=== PATIENT | female | born 1955 | race Caucasian/White ===

== ENCOUNTER → 2017-09-28 | Outpatient (CLI) | payer OTHER | LOC: FIMAGING 15:40 | PROVIDERS: ATTEND Family Medicine | DX: Z12.31 Encounter for screening mammogram for malignant neoplasm of breast (principal) | CPT/HCPCS: G0202 ==

== ENCOUNTER → 2017-11-17 | Outpatient (CLI) | payer OTHER | LOC: BMCIMAGING 14:44 | PROVIDERS: ATTEND Nurse Practitioner Family | DX: M85.80 Other specified disorders of bone density and structure, unspecified site (principal); Z82.62 Family history of osteoporosis ==

== ENCOUNTER 2018-02-03 08:36 | Emergency (ER) | payer OTHER ==
--- NOTE | 2018-02-03 08:52 | CPEKG ---
Heart Rate: 70 RR Interval: 857 P-R Interval: 140 QRSD Interval: 90 QT Interval: 384 QTC Interval: 415 P Carmichael: 49 QRS Carmichael: 8 T Wave Carmichael: 48 EKG Severity - NORMAL ECG - EKG Impression: SINUS RHYTHM Electronically Signed By: Se Vasquez 05-Feb-2018 12:50:00
[2018-02-03] MEDS ORDERED: NS 1,000 ML IV ONE (09:10)
--- NOTE | 2018-02-03 09:10 | EDPHY ---
General Time Seen by Provider: 02/03/18 09:01 Narrative: CHIEF COMPLAINT: HISTORY OF PRESENT ILLNESS: Patient complains of 2 days history of palpitations, lightheadedness, indigestion. She describes palpitations as an "unpleasant thrill." This is relatively predictable with exertion over the past 2-3 days. She reports no chest pain but occasional mild pressure. No shortness of breath. No fever. No cough. No diaphoresis. No nausea or vomiting with this. Symptoms do resolve when she rest. She associates this with [id number] lightheadedness but no actual syncope. No spinning sensation. No recent travel , trauma, surgery or history of venous thrombolic event. No exogenous hormone use. She does report a recent viral illness that she still has mild symptoms from. She has previous echocardiogram greater than 10 years ago but no coronary artery diagnosis or stress test. No other associated complaints or modifying factors. REVIEW OF SYSTEMS: Ten systems reviewed and are negative unless otherwise noted in the HPI PCP: Dr. Harris SPECIALISTS: None PAST MEDICAL HISTORY: Denies. Echocardiogram performed greater than 10 years ago PAST SURGICAL HISTORY: No recent surgeries SOCIAL HISTORY: Moderate smoker quit 20+ years ago. Occasional alcohol. No drug use. Retired RN. FAMILY HISTORY: Noncontributory EXAMINATION General Appearance: Alert, no distress Head: normocephalic, atraumatic Eyes: Pupils equal and round, no conjunctival pallor or injection ENT, Mouth: Mucous membranes mildly dry. Airway widely patent. Neck: Normal inspection, supple, non-tender Respiratory: Lungs are clear to auscultation. No wheezing. No rhonchi. No crackles. Cardiovascular: Regular rate and rhythm. No murmur. Symmetric radial pulses 2 +. Symmetric DP pulses 2+. Gastrointestinal: Abdomen is soft and nontender Back: non-tender, no bony abnormalities Neurological: A&O, nonfocal, normal gait Skin: Warm and dry, no rash Extremities: Nontender, no pedal edema. No discrepancy of calf circumference. No erythema of the extremities. Negative DVT exam. Psychiatric: Mood and affect normal DIFFERENTIAL DIAGNOSES: Including but not limited to dehydration, ACS, PE, near-syncope, cardiac conduction delay, dysrhythmia, TIA MDM: 9:05 a.m. Palpitations, lightheadedness all related to exertion over the past few days. She has no direct pain but she does have some pressure. EKG reveals sinus rhythm with incomplete bundle branch and no acute ischemia. Vital signs are within normal limits. Lungs are clear. I have ordered laboratory studies, awake overnight monitor, chest x-ray and D-dimer. She is in no acute distress. 10:00 a.m. CBC, chemistry are both within normal limits. Troponin is negative. D-dimer is negative. BNP is within normal limits. Chest x-ray has been read as negative by radiologist. I have reviewed this as well. Discussed with Dr. Glasgow. We discussed echo cardiogram given the patient's exertional complaints. 10:05 a.m. I have re-evaluated the patient and discussed the negative findings. We discussed echocardiogram she agrees to proceed. She feels that this may be related to her recent upper respiratory infection but has consented to the echo. She is resting comfortably without complaints or any acute distress at this time. 10:50 a.m. Echocardiogram has been performed and is pending credit officer interpretation. 11:50 a.m. Unofficial interpretation is negative echocardiogram. I have re-evaluated the patient. She is asymptomatic at this time. I discussed with Dr. Glasgow and we are in agreement that she is stable for discharge home. We discussed avoiding exertional activities. We discussed follow up with primary care physician to discuss further workup. We also discussed ED precautions for any actual chest pain, shortness of breath, further near-syncope or syncopal episodes. I did offer admission to the hospital and she has declined. She would like to go home. I do feel this is reasonable and she is stable for discharge home. Addendum 2:00 p.m. Formal echocardiogram report is available and I reviewed this. No significant findings documented. EKG interpretation: Dr. Glasgow Sinus rhythm. No acute ischemia. SUPERVISION: Patient was independently examined, but I discussed the case with my secondary supervising physician Dr. Glasgow - Diagnostics Imaging Results: Imaging Impressions Chest X-Ray 02/03/18 09:11 Impression: Clear lungs. No acute process. - History Smoking Status: Never smoked - Objective Vital Signs: Initial Vital Signs Temperature (C) 97.3 F 02/03/18 08:39 Heart Rate 79 02/03/18 08:39 Respiratory Rate 20 02/03/18 08:39 Blood Pressure 134/88 H 02/03/18 08:39 O2 Sat (%) 99 02/03/18 08:39 O2 Delivery Mode Room Air Allergies/Adverse Reactions: No Known Allergies Allergy (Unverified 02/03/18 08:39) Home Medications: Medication Instructions Recorded NK [No Known Home Meds] 02/03/18 Laboratory Results: Laboratory Results 02/03/18 08:58 02/03/18 08:58 02/03/18 02/03/18 02/03/18 08:58 08:58 08:58 WBC 3.07 10^3/uL L 10^3/uL (3.80-9.50) RBC 4.56 10^6/uL 10^6/uL (4.18-5.33) Hgb 13.8 g/dL g/dL (12.6-16.3) Hct 41.1 % % (38.0-47.0) MCV 90.1 fL fL (81.5-99.8) MCH 30.3 pg pg (27.9-34.1) MCHC 33.6 g/dL g/dL (32.4-36.7) RDW 12.7 % % (11.5-15.2) Plt Count 262 10^3/uL 10^3/uL (150-400) MPV 9.0 fL fL (8.7-11.7) Neut % (Auto) 66.5 % % (39.3-74.2) Lymph % (Auto) 25.4 % % (15.0-45.0) [place] % (Auto) 7.2 % % (4.5-13.0) Eos % (Auto) 0.3 % L % (0.6-7.6) Baso % (Auto) 0.3 % % (0.3-1.7) Nucleat RBC Rel Count 0.0 % % (0.0-0.2) Absolute Neuts (auto) 2.04 10^3/uL 10^3/uL (1.70-6.50) Absolute Lymphs (auto) 0.78 10^3/uL L 10^3/uL (1.00-3.00) Absolute Monos (auto) 0.22 10^3/uL L 10^3/uL (0.30-0.80) Absolute Eos (auto) 0.01 10^3/uL L 10^3/uL (0.03-0.40) Absolute Basos (auto) 0.01 10^3/uL L 10^3/uL (0.02-0.10) Absolute Nucleated RBC 0.00 10^3/uL 10^3/uL (0-0.01) Immature Gran % 0.3 % % (0.0-1.1) Immature Gran # 0.01 10^3/uL 10^3/uL (0.00-0.10) PT 12.7 SEC SEC (12.0-15.0) INR 0.93 (0.83-1.16) APTT 27.5 SEC SEC (23.0-38.0) D-Dimer 0.28 ug/mLFEU ug/mLFEU (0.00-0.50) Sodium 142 mEq/L mEq/L (135-145) Potassium 4.5 mEq/L mEq/L (3.5-5.2) Chloride 103 mEq/L mEq/L (97-110) Carbon Dioxide 26 mEq/l mEq/l (22-31) Anion Gap 13 mEq/L mEq/L (8-16) BUN 19 mg/dL mg/dL (7-23) Creatinine 0.9 mg/dL mg/dL (0.6-1.0) Estimated GFR > 60 Glucose 91 mg/dL mg/dL (70-100) Calcium 9.8 mg/dL mg/dL (8.5-10.4) Troponin I < 0.012 ng/mL ng/mL (0.000-0.034) NT-Pro-B Natriuret Pep 86 pg/mL pg/mL (0-125) Medications Given: Discontinued Medications Sodium Chloride (Ns) 1,000 mls @ 0 mls/hr IV EDNOW ONE; Wide Open PRN Reason: Protocol Stop: 02/03/18 09:11 Last Admin: 02/03/18 09:25 Dose: 1,000 mls Departure - Departure Disposition: Home, Routine, Self-Care Clinical Impression: Light-headed feeling, Near syncope Condition: Good Instructions: Near Syncope (ED) Additional Instructions: 1. Contact primary care physician for further workup 2. Avoid exertional activity if symptomatic 3. Return to ER for worsening symptoms, syncope, chest pain, shortness of breath Referrals: ADEN HARRIS [Primary Care Provider] - As per Instructions
[2018-02-03 09:20] LABS: PLATELET COUNT 262 10^3/uL (150-400)
[2018-02-03 09:29] LABS: INR 0.93 (0.83-1.16); PROTIME(PATIENT) 12.7 SEC (12.0-15.0)
[2018-02-03 12:13] VITALS: BP 120/74
--- NOTE | 2018-02-03 12:26 | ECHO ---
[email or web address] [address] [address] Main: [phone] Fax: Transthoracic Echocardiogram Name: VANESA AG MR#: [id number] Study Date: 02/03/2018 Study Time: 10:31 AM Date of : 1955 Age: 62 year(s) Height: 165.1 cm (65 in.) Weight: 61.24 kg (135 lb.) BSA: 1.67 m2 Gender: Female Examination: Echo Indication: Lightheaded/near syncope with exertion Image Quality: Contrast: Requested by: Sonny Harrison BP: / Heart Rate: Rhythm: Indication: Lightheaded/near syncope with exertion Procedure Staff Trauma Registrar: Natalee Madison [facility] Reading Physician: Faizan Calvert MD Requesting Provider: Conclusions: Left Ventricle: Normal size left ventricle. No LV hypertrophy. Normal global systolic LV function. The ejection fraction is estimated to be 65-70 %. Normal size right ventricle. There is a moderator band noted in the right ventricle. Mild mitral valve regurgitation is present. The aortic valve is tri-leaflet. Trivial aortic valve regurgitation. Mild tricuspid regurgitation is present. The pulmonary artery pressure is normal. Measurements: Chambers Valvular Assessment AV/MV Valvular Assessment TV/PV Normal Normal Normal Name Value Range Name Value Range Name Value Range Ao Ankita (2D): 3.1 cm (1.4 cm-2.6 AV Vmax: 1.19 m/s (1 m/s-1.7 TR Vmax: 2.32 mm/s ( - ) cm) m/s) TR PGmax: 22 mmHg ( - ) IVSd (2D): 0.5 cm (0.6 cm-1.1 AV maxP mmHg ( - ) syst. PAP: 27 mmHg ( - ) cm) AV meanP mmHg ( - ) LVDd (2D): 4.6 cm (3.9 cm-5.3 MV E Vmax: 0.64 m/s ( - ) cm) MV A Vmax: 0.49 m/s ( - ) LVDs (2D): 2.7 cm (2.1 cm-4 MV E/A: 1.31 ( - ) cm) LVPWd (2D): 0.6 cm ( - ) LVEF (MOD4): 69 % (>=55 %) EF Range: 65-70 % Continued Measurements: Patient: VANESA AG Study Date: 02/03/2018 Page 1 of 2 10:31 AM Chambers Valvular Assessment AV/MV Valvular Assessment TV/PV Name Value Name Value Name Value LADs: 3.4 cm MV E/E' Septal: 6.80 CVP (est.): 5 mmHg LADs Lon.4 cm MV E/E' Lateral: 5.50 LA Area: 12.6 cm2 Additional Vessels Name Value Ao Ascendin.1 cm Findings: Left Ventricle: Normal size left ventricle. No LV hypertrophy. Normal global systolic LV function. The ejection fraction is estimated to be 65-70 %. No regional wall motion abnormality. Right Ventricle: Normal size right ventricle. There is a moderator band noted in the right ventricle. Left Atrium: The left atrium is normal in size. Right Atrium: The right atrium is normal in size. Mitral Valve: The mitral valve is normal in appearance and function. Mild mitral valve regurgitation is present. Aortic Valve: The aortic valve is normal in appearance and function. The aortic valve is tri-leaflet. Trivial aortic valve regurgitation. Tricuspid Valve: The tricuspid valve is normal in appearance and function. Mild tricuspid regurgitation is present. The pulmonary artery pressure is normal. Pulmonic Valve: The pulmonic valve is normal in appearance and function. Trivial pulmonic valve regurgitation. Aorta: The aorta is normal. Pericardium: No pericardial effusion. (No Signature Object) Patient: VANESA AG Study Date: 02/03/2018 Page 2 of 2 10:31 AM [id number]
== END 2018-02-03 12:13 | disposition home or self-care (01) ==
DX: R55 Syncope and collapse (principal); E86.9 Volume depletion, unspecified

== ENCOUNTER → 2018-10-08 | Outpatient (CLI) | payer OTHER | LOC: FIMAGING 14:37 | PROVIDERS: ATTEND Family Medicine | DX: Z12.31 Encounter for screening mammogram for malignant neoplasm of breast (principal) ==